=== PATIENT | female | born 1965 | race Caucasian/White ===

== ENCOUNTER → 2016-09-08 | Outpatient (CLI) | payer BC ==
[~2016-09-08] VITALS: Ht 170.2 cm; Wt 84.8 kg
[~2016-09-08] MED LIST: DAILY VALUE1 EACH PO; MAG GLYCINATE100 MG PO; VITAMIN B-12250 MC2 PO; VITAMIN D31000 UNI2 PO
== END | disposition home or self-care (01) ==
LOC: AMB 08:00
PROC: 0DBL8ZX Excision of Transverse Colon, Via Natural or Artificial Opening Endoscopic, Diagnostic (ICD-10-PCS; principal; 2016-09-08)
DX: Z12.11 Encounter for screening for malignant neoplasm of colon (principal); D12.3 Benign neoplasm of transverse colon; E55.9 Vitamin D deficiency, unspecified
CPT/HCPCS: 88305